=== PATIENT | female | born 1950 | race Two or more races ===

== ENCOUNTER → 2024-04-12 | Outpatient (CLI) | payer MEDICARE, MEDICAID, SELFPAY ==
--- NOTE | 2024-04-12 14:00 | XR_ITS ---
Examination: Bone densitometry Date and time of exam:April 12, 2024 1012 hours INDICATIONS: Menopause age 57 Technique: Lumbar spine and hip total bone mineralization values of an calculated. Peak reference and age match control results have been displayed. Findings: Lumbar spine total bone mineralization is0.973 gm/cm2. This is 0.7 standard deviations below peak reference. This is 1.6 standard deviations above age-matched controls. Hip total bone mineralization is 1.008 gm/cm2 This is 0.3 standard deviations above peak reference. This is 1.9 standard deviations above age-matched controls Impression: There is normal mineralization based on lumbar spine measurements. There is normal mineralization based on hip measurements
== END | disposition home or self-care (01) ==
PROVIDERS: Referring Provider Physician Assistant; Visit Provider Physician Assistant
DX: M81.0 Age-related osteoporosis without current pathological fracture (principal)
CPT/HCPCS: 77080